=== PATIENT | female | born 1960 | race Caucasian/White ===

== ENCOUNTER 2016-07-16 22:49 | Emergency (ER) | payer BC, OTHER ==
[2016-07-16] MEDS ORDERED: AMOX/CLAV 875 MG/125 MG TABLET PO STA (23:09)
[2016-07-16] MEDS ORDERED: IBUPROFEN 600 MG TABLET PO STA (23:09)
[2016-07-16] MEDS ORDERED: TETANUS/DIPHTHERIA TOXOID 0.5 ML SYRINGE IM ONE (23:09)
[2016-07-16] MEDS ORDERED: IBUPROFEN 600 MG TABLET PO ONE (23:11)
[2016-07-16] MEDS ORDERED: AMOX/CLAV 875 MG/125 MG TABLET PO ONE (23:11)
[2016-07-16] MEDS ORDERED: TETANUS/DIPHTHERIA/PERTUSSIS 0.5 ML SYRINGE IM ONE (23:11)
== END 2016-07-16 23:35 | disposition home or self-care (01) ==
DX: S61.250A Open bite of right index finger without damage to nail, initial encounter (principal); W55.01XA Bitten by cat, initial encounter; Z23 Encounter for immunization
CPT/HCPCS: 90471; 90715; 99283; A9270

== ENCOUNTER 2019-07-09 12:45 | Outpatient (CLI) | payer OTHER ==
--- NOTE | 2019-07-10 08:41 | CT Report ---
Reason: LLQ ABD PAIN Procedure Date: 07/09/2019 Accession Number: [id number] / [id number] Procedure: CT - Abdomen/Pelvis WO CPT Code: Final Report FULL RESULT: EXAM: CT ABDOMEN AND PELVIS EXAM DATE: 07/09/2019 12:56 PM. CLINICAL HISTORY: LLQ ABD PAIN. COMPARISONS: ABDOMEN/PELVIS W/O 01/10/2014 12:08 AM. TECHNIQUE: Routine helical CT imaging was performed through the abdomen and pelvis. IV contrast: None. Enteric contrast: No. Reconstructions: Coronal and sagittal. In accordance with CT protocol optimization, one or more of the following dose reduction techniques were utilized for this exam: automated exposure control, adjustment of mA and/or KV based on patient size, or use of iterative reconstructive technique. FINDINGS: Lung Bases: Unremarkable. Liver: Normal. No masses. Gallbladder/Bile Ducts: Unremarkable. Spleen: Normal. Pancreas: Normal. Adrenal Glands: Normal. Kidneys: Right kidney: No calcifications. No hydronephrosis. Left kidney: 11 x 7 mm partially obstructing calcification at the proximal ureter at the junction of the renal pelvis and ureter at L2 level. Moderate hydronephrosis. Lower pole kidney 11 mm calcification Bladder: There is a 7 mm right bladder calcification that is at or near the right ureterovesical junction. This could be in the intramural portion of the right ureter however there is no right hydronephrosis. Mild bladder wall thickening Peritoneal Cavity/Bowel: Diverticulosis. Fat containing umbilical hernia No free fluid, free air or adenopathy. No masses or acute inflammatory process. The appendix is well visualized and normal. Pelvic Organs: Normal. The bladder and visualized pelvic organs are within normal limits. Vasculature: No aneurysms or other significant abnormality. Bones: No significant abnormality. Other: Post right mastectomy. IMPRESSION: 1. Left kidney: 11 x 7 mm partially obstructing calcification at the proximal ureter at the junction of the renal pelvis and ureter at L2 level causing moderate hydronephrosis. Lower pole kidney 11 mm calcification 2. 7 mm right bladder calcification either within the bladder or at the intramural portion of right ureter however no right hydronephrosis. Mild bladder wall thickening RADIA
== END 2019-07-09 12:46 | disposition home or self-care (01) ==
LOC: DI 12:45
PROVIDERS: ATTEND Physician Assistant
DX: N13.2 Hydronephrosis with renal and ureteral calculous obstruction (principal); R93.41 Abnormal radiologic findings on diagnostic imaging of renal pelvis, ureter, or bladder
CPT/HCPCS: 74176

== ENCOUNTER 2019-07-21 06:57 | Emergency (ER) | payer OTHER ==
[2019-07-21] MEDS ORDERED: KETOROLAC 30 MG/ML VIAL IVP STA (07:14)
[2019-07-21] MEDS ORDERED: HYDROmorphone 1 MG/ML CARPUJECT IVP STA (07:14)
[2019-07-21] MEDS ORDERED: SODIUM CHLORIDE 0.9% 1,000 ML IV ONE (07:14)
--- NOTE | 2019-07-21 07:15 | ED Physician Documentation ---
PD HPI ABD PAIN - Stated complaint Stated Complaint: POST OP PX - Chief complaint Chief Complaint: Abd Pain - History obtained from History obtained from: Patient (This is a very pleasant 58-year-old woman with a history of recurrent renal colic. She has been having trouble with a kidney stone lately and had an outpatient CT done here done on the third of this month showing 11 x 7 mm partially obstructing calcification at the left proximal ureter, also 7 mm right bladder versus distal ureteral calcification. She saw Dr. Napier yesterday and it sounds like they tried to do a basket retrieval on the left but it was not successful, so a stent was placed with the plan of trying to repeat the procedure in a couple of weeks. Her pain is been severe and uncontrolled usually in the left flank but sometimes radiating to the left lower quadrant despite taking Percocet. 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 - Present Medications Home Medications: Ambulatory Orders Medication Instructions Recorded Confirmed Ondansetron [Zofran Odt] 8 mg PO Q6H PRN #10 tab.rapdis 01/10/14 07/21/19 HYDROmorphone [Dilaudid] 1 - 2 tab PO Q4H PRN #20 tablet 07/21/19 Hydrocodone/Acetaminophen 1 - 2 each PO Q6HR PRN 07/21/19 07/21/19 [Hydrocodone-Acetamin 5-325 mg] Hyoscyamine [Levsin] 0.125 mg SL Q4H PRN #20 tablet 07/21/19 Ibuprofen [Motrin] 800 mg PO Q8H PRN #30 tablet 07/21/19 Phenazopyridine HCl [Pyridium] 200 mg PO TID PRN #20 tablet 07/21/19 Tamsulosin HCl [Flomax] 0.4 mg PO DAILY 07/21/19 07/21/19 - Allergies Allergies/Adverse Reactions: Allergies Allergy/AdvReac Type Severity Reaction Status Date / Time Sulfa (Sulfonamide Allergy Intermediate severe Verified 02/15/20 07:40 Antibiotics) skin rash levofloxacin [From Levaquin] Allergy Hives Verified 07/21/19 07:40 - Social History Does the pt smoke?: No Smoking Status: Never smoker Does the pt drink ETOH?: No - Immunizations Immunizations are current?: Yes PD ED PE NORMAL - Vitals Vital signs reviewed: Yes - General General: Alert and oriented X 3, Other (She appears uncomfortable) - HEENT HEENT: PERRL, EOMI - Neck Neck: Supple, no meningeal sign, No bony TTP - Cardiac Cardiac: RRR, No murmur - Respiratory Respiratory: No respiratory distress, Clear bilaterally - Abdomen Abdomen: Normal bowel sounds, Soft, Non tender - Back Back: Other (Mild left flank tenderness) - Derm Derm: Normal color, Warm and dry, No rash - Extremities Extremities: No edema, No calf tenderness / cord - Neuro Neuro: Alert and oriented X 3, Normal speech Results - Vitals Vitals: Vital Signs - 24 hr 07/21/19 07/21/19 07/21/19 07:10 07:30 08:30 Temperature 36.5 C Heart Rate 118 H 85 65 Respiratory 20 18 16 Rate Blood Pressure 153/100 H 143/93 H 135/87 H O2 Saturation 98 97 96 07/21/19 09:00 Temperature Heart Rate 73 Respiratory 16 Rate Blood Pressure 144/91 H O2 Saturation 97 Oxygen O2 Source Room air - Labs Labs: Laboratory Tests 07/21/19 07/21/19 07/21/19 07:23 07:23 07:40 WBC 8.7 RBC 4.48 Hgb 13.3 Hct 39.2 MCV 87.5 MCH 29.7 MCHC 33.9 RDW 12.5 Plt Count 271 MPV 10.1 Neut # (Auto) 6.4 Lymph # (Auto) 1.5 Mcduffie # (Auto) 0.8 Eos # (Auto) 0.0 Baso # (Auto) 0.0 Absolute Nucleated RBC 0.00 Nucleated RBC % 0.0 Sodium 139 Potassium 3.5 Chloride 102 Carbon Dioxide 24 Anion Gap 13.0 BUN 15 Creatinine 1.0 Estimated GFR (MDRD) 57 L Glucose 130 H Calcium 9.8 Total Bilirubin 1.0 AST 22 ALT 15 Alkaline Phosphatase 49 Total Protein 8.2 Albumin 4.5 Globulin 3.7 Albumin/Globulin Ratio 1.2 Lipase 39 Urine Color LT RED Urine Clarity SL. CLOUDY Urine pH 6.0 Ur Specific [place] 1.025 Urine Protein 100 H Urine Glucose (UA) NEGATIVE Urine Ketones TRACE Urine Occult Blood LARGE H Urine Nitrite NEGATIVE Urine Bilirubin NEGATIVE Urine Urobilinogen 0.2 (NORMAL) Ur Leukocyte Esterase TRACE H Urine RBC TNTC H Urine WBC 0-3 Ur Squamous Epith Cells RARE Squamous Urine Bacteria Few Ur Microscopic Review INDICATED Urine Culture Comments INDICATED PD MEDICAL DECISION MAKING - ED course ED course: 58-year-old woman with severe pain despite taking Percocet at home. Has known large ureteral stone and had an attempted intervention yesterday that was not successful so now has a stent in place. Her pain was manageable after IV Dilaudid and Toradol. She already had Zofran at home so she was not nauseous here. Case was discussed by phone with Dr. Alford on-call for Dr. Napier. She recommended Dilaudid in addition to her Percocets, and agreed with adding Pyridium and an NSAID. She also thought hyoscyamine would be useful. Departure - Departure Disposition: 01 Home, Self Care Clinical Impression: Renal colic Condition: Good Instructions: ED Stone Renal W Colic Prescriptions: HYDROmorphone [Dilaudid] 1 - 2 tab PO Q4H PRN #20 tablet PRN Reason: Severe Pain Hyoscyamine [Levsin] 0.125 mg SL Q4H PRN #20 tablet PRN Reason: Pain Ibuprofen [Motrin] 800 mg PO Q8H PRN #30 tablet PRN Reason: PAIN &/OR FEVER Phenazopyridine HCl [Pyridium] 200 mg PO TID PRN #20 tablet PRN Reason: dysuria Comments: I spoke with Dr. Alford on-call for Dr. Napier today. She recommended the pain management rate medications and regimen that we are prescribing in addition to the oxycodone you are already taking. Return for intolerable symptoms. Follow- up as planned with Dr. Napier.
[2019-07-21 07:50] LABS: BASOPHILS % (AUTO) 0.1 %; EOSINOPHILS % (AUTO) 0.1 %; HGB - HEMOGLOBIN 13.3 g/dL (12.0-16.0); LYMPHOCYTES # (AUTO) 1.5 10^3/uL (1.5-3.5); LYMPHOCYTES % (AUTO) 16.9 %; MEAN CORPUSCULAR HEMOGLOBIN 29.7 pg (27.0-31.0); MEAN CORPUSCULAR HGB CONC 33.9 g/dL (32.0-36.0); MEAN CORPUSCULAR VOLUME 87.5 fL (81.0-99.0); MEAN PLATELET VOLUME 10.1 fL (7.9-10.8); MONOCYTES # (AUTO) 0.8 10^3/uL (0.0-1.0); MONOCYTES % (AUTO) 8.9 %; NEUTROPHILS # (AUTO) 6.4 10^3/uL (1.5-6.6); NEUTROPHILS % (AUTO) 73.5 %; PLT - PLATELET COUNT 271 10^3/uL (130-450); RED BLOOD COUNT 4.48 10^6/uL (4.20-5.40); RED CELL DISTRIBUTION WIDTH 12.5 % (12.0-15.0); WHITE BLOOD COUNT 8.7 x10^3/uL (4.8-10.8)
[2019-07-21 08:00] LABS: ALBUMIN 4.5 g/dL (3.2-5.5); ALBUMIN/GLOBULIN RATIO 1.2 (1.0-2.2); CALCIUM 9.8 mg/dL (8.5-10.3); TOTAL PROTEIN 8.2 g/dL (6.7-8.2)
[2019-07-21 08:07] LABS: BILIRUBIN,URINE NEGATIVE (NEGATIVE); GLUCOSE, URINE (UA) NEGATIVE (NEGATIVE); KETONES,URINE (UA) TRACE mg/dL (NEGATIVE); LEUKOCYTE ESTERASE, URINE TRACE (NEGATIVE); NITRITE,URINE NEGATIVE (NEGATIVE); OCCULT BLOOD,URINE LARGE (NEGATIVE); PROTEIN,URINE 100 mg/dL (NEGATIVE); UROBILINOGEN,URINE 0.2 (NORMAL) E.U./dL (NORMAL)
[2019-07-21 08:10] LABS: CLARITY,URINE SL. CLOUDY (CLEAR)
[2019-07-21 08:24] LABS: BACTERIA,URINE Few /HPF (None Seen); RBC,URINE TNTC /HPF (0-5); SQUAMOUS EPITHELIAL CELL,UR RARE Squamous (<= Few)
[2019-07-21] MEDS ORDERED: PHENAZOPYRIDINE 100 MG TABLET PO STA (08:36)
[2019-07-21 09:03] VITALS: BP 144/91
== END 2019-07-21 09:22 | disposition home or self-care (01) ==
LOC: ED 06:57
DX: N20.1 Calculus of ureter (principal)
CPT/HCPCS: 36415; 80053; 81001; 83690; 85025; 87086; 96361; 96374; 99284; A9270; J1170; 81003

== ENCOUNTER 2019-10-31 06:45 | Outpatient (CLI) | payer OTHER ==
--- NOTE | 2019-10-31 17:02 | Ultrasound Report ---
Reason: LEFT NEPHROLITHIASIS Procedure Date: 10/31/2019 Accession Number: [id number] / [id number] Procedure: US - Retroperitoneal CPT Code: Final Report FULL RESULT: EXAM: RENAL ULTRASOUND EXAM DATE: 10/31/2019 07:45 AM. CLINICAL HISTORY: Left nephrolithiasis. COMPARISON: ABDOMEN/PELVIS W/O 07/09/2019 12:58 PM. TECHNIQUE: Real-time scanning was performed with static images obtained. FINDINGS: Right Kidney: 10.9 x 5.7 x 5.1 cm. Normal echotexture with no stones, contour-deforming masses, or hydronephrosis. Left Kidney: 10.8 x 5.2 x 4.5 cm. Normal echotexture with no stones, contour-deforming masses, or hydronephrosis. Bladder: Bilateral jets seen. The prevoid bladder volume was 79 cc. The postvoid bladder volume was 0 cc. Other: None. IMPRESSION: Negative exam. No hydronephrosis. RADIA
== END 2019-10-31 06:46 | disposition home or self-care (01) ==
LOC: DI 06:45
PROVIDERS: ATTEND Urology
DX: N20.0 Calculus of kidney (principal)
CPT/HCPCS: 76770